=== PATIENT | female | born 2000 | race Two or more races ===

== ENCOUNTER 2019-12-08 09:38 | Outpatient (CLI) | payer OTHER | END 2019-12-08 09:52 | disposition home or self-care (01) | LOC: RAD 09:38 | PROVIDERS: ATTEND General Practice | DX: R00.2 Palpitations (principal); R45.0 Nervousness; Z13.89 Encounter for screening for other disorder; Z13.220 Encounter for screening for lipoid disorders; Z11.3 Encounter for screening for infections with a predominantly sexual mode of transmission; Z13.1 Encounter for screening for diabetes mellitus; Z13.228 Encounter for screening for other metabolic disorders; R06.02 Shortness of breath ==